=== PATIENT | male | born 1935 | race Hispanic/Latino ===

== ENCOUNTER 2017-08-12 12:29 | Emergency (ER) | payer MEDICARE ==
[2017-08-12 12:32] VITALS: BP 142/69; PULSE 96; RESP 16; TEMP 97.7; O2SAT 98
--- NOTE | 2017-08-12 13:51 | ED PDOC ---
HPI: General Adult Time Seen by Provider: 08/12/17 12:39 Chief Complaint (Nursing): Altered Mental Status History Per: Patient, EMS Additional Complaint(s): Pt. states he was walking to the store today when he felt both his legs become weak. Pt. states he walked from home to the store. Denies trauma, numbness, tingling. Pt. states he normally wears his gloves and jacket despite the weather as it makes him feel comfortable. Pt. offers no complaints at this time. Denies fall, headache, chest pain, SOB, fever, N/V/D. Against Medical Advice - AMA Patient Left Against Medical Advice: The patient declines admission to the hospital and wishes to leave the Emergency Department. This action is against my medical advice. This decision was made with informed refusal. The patient was told that admission to the hospital is necessary. Explanation of the reasons why were discussed. The risks of leaving were explained to the patient and include, but are not limited to, worsening of known or currently unknown conditions, permanent disability and from undiagnosed or untreated conditions. The patient has the capacity to make this informed decision and understands my explanation of the current medical problem and risks of leaving. The patient voluntarily accepts these risks and signed an AMA form documenting our conversation. The patient was given the opportunity to ask questions and reconsider. The patient was encouraged to return to the Emergency Department at any time for further care. 08/12/17 13:[address] Galarza. Past Medical History Reviewed: Historical Data, Nursing Documentation, Vital Signs Vital Signs: Last Vital Signs Temp 97.7 F 08/12/17 12:32 Pulse 96 H 08/12/17 12:32 Resp 16 08/12/17 12:32 BP 142/69 08/12/17 12:32 Pulse Ox 98 08/12/17 12:32 - Medical History PMH: Arthritis, Hypothyroidism Denies: Chronic Kidney Disease - Surgical History Other surgeries: R hip surgery 2017 - Family History Family History: States: No Known Family Hx - Immunization History Hx Influenza Vaccination: No Hx Pneumococcal Vaccination: No - Home Medications Home Medications: Ambulatory Orders Medication Instructions Recorded Does Not Remember Names Of Other 07/27/15 Meds Levothyroxine [Levoxyl] 0.125 mg PO DAILY 07/27/15 - Allergies Allergies/Adverse Reactions: Allergies Allergy/AdvReac Type Severity Reaction Status Date / Time No Known Allergies Allergy Verified 07/27/15 13:43 Review of Systems ROS Statement: Except As Marked, All Systems Reviewed And Found Negative Neurological: Positive for: Weakness Physical Exam - Reviewed Nursing Documentation Reviewed: Yes Vital Signs Reviewed: Yes - Physical Exam Appears: Positive for: Well, Non-toxic, No Acute Distress Head Exam: Positive for: ATRAUMATIC, NORMAL INSPECTION, NORMOCEPHALIC Skin: Positive for: Normal Color, Warm. Negative for: Rash Eye Exam: Positive for: EOMI, Normal appearance, PERRL ENT: Positive for: Normal ENT Inspection Neck: Positive for: Normal, Painless ROM Cardiovascular/Chest: Positive for: Regular Rate, Rhythm Respiratory: Positive for: CNT, Normal Breath Sounds Gastrointestinal/Abdominal: Positive for: Normal Exam, Soft. Negative for: Tenderness Back: Positive for: Normal Inspection Extremity: Positive for: Normal ROM Neurologic/Psych: Positive for: Alert, Oriented (x 3 ), Mood/Affect (calm, cooperative, happy), Gait (steady with cane). Negative for: Aphasia, Facial Droop - ECG O2 Sat by Pulse Oximetry: 98 Disposition - Clinical Impression Clinical Impression: Leg weakness, bilateral, Left against medical advice - Patient ED Disposition Is Patient to be Admitted: No - Disposition Disposition: Against Medical Advice Disposition Time: 13:08 Condition: FAIR Instructions: Leaving Against Medical Advice, Weakness (ED) Forms: [facility] (Arabic) Print Language: WELSH
== END 2017-08-12 13:05 | disposition left against medical advice (07) ==
LOC: H.ER 12:29
DX: R53.1 Weakness (principal); E03.9 Hypothyroidism, unspecified